=== PATIENT | female | born 1940 | race Caucasian/White ===

== ENCOUNTER 2017-07-22 18:14 | Observation (INO) | payer MEDICARE, OTHER ==
--- NOTE | 2017-07-22 18:22 | PDOC ---
Rapid Medical Evaluation Time Seen by Provider: 07/22/17 18:21 Medical Evaluation: 07/22/17 18:21 I have performed a brief in-person evaluation of this patient. The patient presents with a chief complaint of: erythema/pain to R calf x 2 month, fall while walking, hx of osteopenia and "problem with her leg", R leg pain, vomiting x 2 days, no abd pain, +dyspnea on exertion, Pertinent physical exam findings: swelling/erythema to R calf I have ordered the following: CBC, CMP, D-dimer, IV, EKG The patient will proceed to the ED for further evaluation.
[2017-07-22 18:25] VITALS: BMI 31.8
[2017-07-22 19:11] LABS: BASO % 0.6 % (0-2.0); EOS % 0.3 % (0-4.5); HEMATOCRIT 37.3 % (32.4-45.2); LYMPH % 51.2 % (8-40); MCH 26.4 pg (25.7-33.7); MCHC 32.2 g/dl (32.0-36.0); MEAN CELL VOLUME 82.1 fl (80-96); MEAN PLT VOLUME 8.8 fl (7.5-11.1); MONO % 11.8 % (3.8-10.2); NEUT % 36.1 % (42.8-82.8); PLATELET COUNT 191 K/MM3 (134-434); RBC 4.54 M/mm3 (3.60-5.2); RDW 14.2 % (11.6-15.6); WHITE BLOOD COUNT 2.8 K/mm3 (4.0-10.0)
[2017-07-22 19:48] LABS: ALBUMIN 3.6 g/dl (3.4-5.0); ANION GAP 6 (8-16); BLOOD UREA NITROGEN 19 mg/dL (7-18); CALCIUM 8.2 mg/dL (8.5-10.1); CHLORIDE 104 mmol/L (98-107); CO2 27 mmol/L (21-32); CREATININE 0.5 mg/dL (0.55-1.02); GLUCOSE,RANDOM 87 mg/dL (74-106); POTASSIUM 3.8 mmol/L (3.5-5.1); SGOT/AST 20 U/L (15-37); SGPT/ALT 18 U/L (12-78); SODIUM 137 mmol/L (136-145)
[2017-07-22 19:49] LABS: ALK PHOS 136 U/L (45-117); BILIRUBIN,TOTAL 0.5 mg/dL (0.2-1.0)
--- NOTE | 2017-07-22 20:28 | PDOC ---
History of Present Illness <Darlene Malin - Last Filed: 07/22/17 22:42> - General History Source: Patient Exam Limitations: No Limitations - History of Present Illness Initial Comments: 07/23/17 01:06 Patient is a 76 year old female with a significant past medical history of Osteoporosis who presents to the ED with complaints of right leg pain that began 1 month ago. As per patient's daughter, patient has been experiencing intermittent right leg pain for the last month. Daughter reports patient has been hospitalized for leg pain before. As per patient's daughter, patient does not rate right leg pain on a scale but states it has increased in intensity enough to make her fall twice due to the pain. Patient reports experiencing SOB with exertion. Denies chest pain. Denies nausea, vomiting. Denies fevers, chills. Denies trauma to affected area. Denies any other symptoms. Allergies: None Social history: No smoking. No alcohol. No illicit drugs. Surgical history: None PMD: None <Israel Truong - Last Filed: 07/23/17 01:07> - General Chief Complaint: Nausea/Vomiting Stated Complaint: FALL INJURY Time Seen by Provider: 07/22/17 18:21 Past History - Past Medical History COPD: No Other medical history: OSTEOPENIA - Suicide/Smoking/Psychosocial Hx Smoking History: Never smoked Hx Alcohol Use: No Drug/Substance Use Hx: No Substance Use Type: None <Darlene Malin - Last Filed: 07/22/17 22:42> <Israel Truong - Last Filed: 07/23/17 01:07> - Past Medical History Allergies/Adverse Reactions: Allergies Allergy/AdvReac Type Severity Reaction Status Date / Time No Known Allergies Allergy Verified 07/22/17 18:24 Home Medications: Ambulatory Orders NK [No Known Home Medication] 07/22/17 NK [No Known Home Medication] 07/22/17 Review of Systems - Review of Systems Able to Perform ROS?: Yes Comments:: 07/23/17 01:06 GENERAL/CONSTITUTIONAL: No fever or chills. No weakness. HEAD, EYES, EARS, NOSE AND THROAT: No change in vision. No ear pain or discharge. No sore throat. GASTROINTESTINAL: No nausea, vomiting, diarrhea or constipation. GENITOURINARY: No dysuria, frequency, or change in urination. CARDIOVASCULAR: No chest pain or shortness of breath. RESPIRATORY: No cough, wheezing, or hemoptysis. MUSCULOSKELETAL: +Right leg pain. No joint or muscle swelling. . No neck or back pain. SKIN: No rash NEUROLOGIC: No headache, vertigo, loss of consciousness, or change in strength/ sensation. ENDOCRINE: No increased thirst. No abnormal weight change. HEMATOLOGIC/LYMPHATIC: No anemia, easy bleeding, or history of blood clots. ALLERGIC/IMMUNOLOGIC: No hives or skin allergy. All Other Systems: Reviewed and Negative <Israel Truong - Last Filed: 07/23/17 01:07> *Physical Exam - Vital Signs Last Vital Signs Temp Pulse Resp BP Pulse Ox 98.2 F 61 20 150/60 100 07/22/17 18:17 07/22/17 18:17 07/22/17 18:17 07/22/17 18:17 07/22/17 18:17 <Darlene Malin - Last Filed: 07/22/17 22:42> - Vital Signs Last Vital Signs Temp Pulse Resp BP Pulse Ox 98.2 F 61 20 150/60 100 07/22/17 18:17 07/22/17 18:17 07/22/17 18:17 07/22/17 18:17 07/22/17 18:17 - Physical Exam Comments: 07/23/17 01:06 GENERAL: Awake, alert, and fully oriented, in no acute distress HEAD: No signs of trauma EYES: PERRLA, EOMI, sclera anicteric, conjunctiva clear ENT: Auricles normal inspection, hearing grossly normal, nares patent, oropharynx clear without exudates. Moist mucosa NECK: Normal ROM, supple, no lymphadenopathy, JVD, or masses LUNGS: Breath sounds equal, clear to auscultation bilaterally. No wheezes, and no crackles HEART: Regular rate and rhythm, normal S1 and S2, no murmurs, rubs or gallops ABDOMEN: Soft, nontender, normoactive bowel sounds. No guarding, no rebound. No masses EXTREMITIES: +Indurated at the right anterior tibia. +Mild erythematous. + Tender to touch. No warmth. No fluctuance. No lymphangitic spread. Normal range of motion, no edema. No clubbing or cyanosis. No cords, erythema, or tenderness NEUROLOGICAL: Cranial nerves II through XII grossly intact. Normal speech, normal gait SKIN: Warm, Dry, normal turgor, no rashes or lesions noted. <Israel Truong - Last Filed: 07/23/17 01:07> Heart Score/ECG Review - ECG Intrepretation Comment:: 07/22/17 22:30 sinus kirsten at 58, pacs, nl axis, no acute st/t wave findings <Darlene Malin - Last Filed: 07/22/17 22:42> ED Treatment Course - LABORATORY CBC & Chemistry Diagram: 07/22/17 19:00 07/22/17 19:00 - ADDITIONAL ORDERS Additional order review: Laboratory Results 07/22/17 07/22/17 07/22/17 19:00 19:00 19:00 D-Dimer 354 Sodium 137 Potassium 3.8 Chloride 104 Carbon Dioxide 27 Anion Gap 6 L BUN 19 H Creatinine 0.5 L Creat Clearance w eGFR > 60 Random Glucose 87 Calcium 8.2 L Total Bilirubin 0.5 AST 20 ALT 18 Alkaline Phosphatase 136 H B-Natriuretic Peptide 187.68 H Total Protein 8.0 Albumin 3.6 07/22/17 19:00 RBC 4.54 MCV 82.1 MCHC 32.2 RDW 14.2 MPV 8.8 Neutrophils % 36.1 L Lymphocytes % 51.2 H Monocytes % 11.8 H Eosinophils % 0.3 Basophils % 0.6 <Darlene Malin - Last Filed: 07/22/17 22:42> - LABORATORY CBC & Chemistry Diagram: 07/22/17 19:00 07/22/17 19:00 - ADDITIONAL ORDERS Additional order review: Laboratory Results 07/22/17 07/22/17 07/22/17 19:00 19:00 19:00 D-Dimer 354 Sodium Potassium Chloride Carbon Dioxide Anion Gap BUN Creatinine Creat Clearance w eGFR Random Glucose Calcium Total Bilirubin AST ALT Alkaline Phosphatase Creatine Kinase 101 Troponin I 0.06 H B-Natriuretic Peptide 187.68 H Total Protein Albumin 07/22/17 19:00 D-Dimer Sodium 137 Potassium 3.8 Chloride 104 Carbon Dioxide 27 Anion Gap 6 L BUN 19 H Creatinine 0.5 L Creat Clearance w eGFR > 60 Random Glucose 87 Calcium 8.2 L Total Bilirubin 0.5 AST 20 ALT 18 Alkaline Phosphatase 136 H Creatine Kinase Troponin I B-Natriuretic Peptide Total Protein 8.0 Albumin 3.6 07/22/17 19:00 RBC 4.54 MCV 82.1 MCHC 32.2 RDW 14.2 MPV 8.8 Neutrophils % 36.1 L Lymphocytes % 51.2 H Monocytes % 11.8 H Eosinophils % 0.3 Basophils % 0.6 - Medications Given in the ED: ED Medications Discontinued Medications Generic Name Dose Route Start Last Admin Trade Name Antonio PRN Reason Stop Dose Admin Aspirin 324 mg 07/22/17 22:37 07/22/17 23:32 Asa - PO 07/22/17 22:38 324 mg ONCE ONE Administration Famotidine/Sodium Chloride 20 mg in 50 mls @ 100 mls/hr 07/22/17 22:37 23:32 Pepcid 20 Mg Premixed Ivpb - IVPB 07/22/17 23:06 100 mls/hr ONCE ONE Administration Ondansetron HCl 4 mg 07/22/17 22:37 07/22/17 23:32 Zofran Injection IVPUSH 07/22/17 22:38 4 mg ONCE ONE Administration <Israel Truong - Last Filed: 07/23/17 01:07> Medical Decision Making - Medical Decision Making 07/22/17 22:31 a/p: 76yo female with sob/leg pain -labs, ekg, cxr, dimer, dopplers -concern given fall -denies head injury -concern given levine for atypical presentation of acs 07/22/17 22:34 pt with elevated trop on labs levine will keep for repeat trops dimer negative 07/22/17 22:[address] Valencia who accept pt to obs <Darlene Malin - Last Filed: 07/22/17 22:42> *DC/Admit/Observation/Transfer - Discharge Dispostion Admit: Yes - Attestations Physician Attestion: 07/22/17 22:37 I, Dr. Darlene Malin DO, attest that this document has been prepared under my direction and personally reviewed by me in its entirety. I further attest, that it accurately reflects all work, treatment, procedures and medical decision -making performed by me. <Darlene Malin - Last Filed: 07/22/17 22:42> - Attestations Scribe Attestion: 07/23/17 01:06 Documentation prepared by Israel Truong, acting as outside medical sales representative for Darlene Malin DO, MD/. <Israel Truong - Last Filed: 07/23/17 01:07> Diagnosis at time of Disposition: Dyspnea on exertion, Elevated troponin - Discharge Dispostion Condition at time of disposition: Fair
[2017-07-22] MEDS ORDERED: FAMOTIDINE 20 MG/50 ML IVPB 20 MG/50 ML MG IVPB ONE ×2 (22:37→23:19)
[2017-07-22] MEDS ORDERED: ASPIRIN 81 MG CHEWABLE TABLETS PO ONE (22:37)
[2017-07-22] MEDS ORDERED: ONDANSETRON 4 MG/2 ML VIAL IVPUSH ONE (22:37)
--- NOTE | 2017-07-22 22:40 | HP ---
CHIEF COMPLAINT: SOB, Nausea, right leg pain PCP:does not have one HISTORY OF PRESENT ILLNESS: 76 year old female with no PMH who presented to the ED with one day H/ O SOB , dry cough, nausea and right leg pain was found to have elevated trop and was admitted to obs to R/O ACS and PE . Patient denies any headache, dizziness, bluury vision. Denies chest pain, palpitation, dyspnea , orthopnea. denies any abdominal pain, vomiting, D/C. denies leg swelling, or any urinary symptoms. ER course was notable for: (1) CXR Negative (2)CTA negaitve (3)Douplex LE negative (4)Zofran for nausea Recent Travel:none PAST MEDICAL HISTORY:none PAST SURGICAL HISTORY: Hysterectomy Social History: Smoking:denies Alcohol:denies Drugs: denies Family History: Allergies No Known Allergies Allergy (Verified 07/22/17 18:24) HOME MEDICATIONS: REVIEW OF SYSTEMS CONSTITUTIONAL: Absent: fever, chills, diaphoresis, generalized weakness, malaise, loss of appetite, weight change, hot flashes HEENT: Absent: rhinorrhea, nasal congestion, throat pain, throat swelling, difficulty swallowing, mouth swelling, ear pain, eye pain, visual changes CARDIOVASCULAR: Absent: chest pain, syncope, palpitations, irregular heart rate, lightheadedness , peripheral edema RESPIRATORY: Absent: cough, shortness of breath, dyspnea with exertion, orthopnea, wheezing, stridor, hemoptysis GASTROINTESTINAL: Absent: abdominal pain, abdominal distension, nausea, vomiting, diarrhea, constipation, melena, hematochezia GENITOURINARY: Absent: dysuria, frequency, urgency, hesitancy, hematuria, flank pain, genital pain MUSCULOSKELETAL: Absent: myalgia, arthralgia, joint swelling, back pain, neck pain SKIN: Absent: rash, itching, pallor HEMATOLOGIC/IMMUNOLOGIC: Absent: easy bleeding, easy bruising, lymphadenopathy, frequent infections ENDOCRINE: Absent: unexplained weight gain, unexplained weight loss, heat intolerance, cold intolerance NEUROLOGIC: Absent: headache, focal weakness or paresthesias, dizziness, unsteady gait, seizure, mental status changes, bladder or bowel incontinence PSYCHIATRIC: Absent: anxiety, depression, suicidal or homicidal ideation, hallucinations. PHYSICAL EXAMINATION Vital Signs - 24 hr 07/22/17 18:17 Temperature 98.2 F Pulse Rate 61 Respiratory 20 Rate Blood Pressure 150/60 O2 Sat by Pulse 100 Oximetry (%) GENERAL: Awake, alert, and fully oriented, in no acute distress. HEAD: Normal with no signs of trauma. EYES: Pupils equal, round and reactive to light, extraocular movements intact, sclera anicteric, conjunctiva clear EARS, NOSE, THROAT: Moist mucous membranes. NECK: Normal range of motion, supple without lymphadenopathy, LUNGS: Breath sounds equal, clear to auscultation bilaterally. No wheezes, and no crackles. No accessory muscle use. HEART: sinus bradycardia , normal S1 and S2 without murmur, rub or gallop. ABDOMEN: Soft, nontender, not distended, normoactive bowel sounds, no guarding, no rebound, LOWER EXTREMITIES: 2+ pulses, warm, well-perfused. No calf tenderness. No peripheral edema. right leg cellulites NEUROLOGICAL: No focal deficit . Normal speech. PSYCHIATRIC: Cooperative. Good eye contact. Appropriate mood and affect. SKIN: Warm, dry, no rashes or lesions noted, Laboratory Results - last 24 hr 07/22/17 07/22/17 07/22/17 19:00 19:00 19:00 WBC 2.8 L RBC 4.54 Hgb 12.0 Hct 37.3 MCV 82.1 MCH 26.4 MCHC 32.2 RDW 14.2 Plt Count 191 MPV 8.8 Neutrophils % 36.1 L Lymphocytes % 51.2 H Monocytes % 11.8 H Eosinophils % 0.3 Basophils % 0.6 D-Dimer Sodium 137 Potassium 3.8 Chloride 104 Carbon Dioxide 27 Anion Gap 6 L BUN 19 H Creatinine 0.5 L Creat Clearance w eGFR > 60 Random Glucose 87 Calcium 8.2 L Total Bilirubin 0.5 AST 20 ALT 18 Alkaline Phosphatase 136 H Creatine Kinase Troponin I B-Natriuretic Peptide 187.68 H Total Protein 8.0 Albumin 3.6 07/22/17 07/22/17 19:00 19:00 WBC RBC Hgb Hct MCV MCH MCHC RDW Plt Count MPV Neutrophils % Lymphocytes % Monocytes % Eosinophils % Basophils % D-Dimer 354 Sodium Potassium Chloride Carbon Dioxide Anion Gap BUN Creatinine Creat Clearance w eGFR Random Glucose Calcium Total Bilirubin AST ALT Alkaline Phosphatase Creatine Kinase 101 Troponin I 0.06 H B-Natriuretic Peptide Total Protein Albumin CBC, BMP 07/22/17 19:00 07/22/17 19:00 CXR: No acute process CTA negative for PE EKG: Sinus Luis Enrique , , non specific St,T wave changes ,QT 434. ASSESSMENT/PLAN: 76 year old female with no PMH who presented to [facility] ED with one day H/ O SOB , dry cough, nausea and right leg pain was found to have elevated trop and was admitted to obs to R/O ACS . # Shortness of breath with Elevated trop R/O PE * R/O ACS * Trend Trop * EKG : non specifc T , St changes ,repeat EKG in AM * Echo cardiogram in AM * Cardiology consult * ASA, Nitroglycerin if developed chest pain * CXR negative for acute process * CTA negative * D-dimer negative * Duplex LE negative for DVT * # right leg cellulite * cefazolin 1gm IV Q8hr. # FEN * F: encourage oral intake * E: WNL * N: regular diet # Proph * DVTs: SCDS both legs with early ambulation # Admit * to obs * Full code Visit type - Emergency Visit Emergency Visit: Yes ED Registration Date: 07/22/17 Care time: The patient presented to the Emergency Department on the above date and was hospitalized for further evaluation of their emergent condition. - New Patient This patient is new to me today: Yes Date on this admission: 07/22/17 - Critical Care Critical Care patient: No
--- NOTE | 2017-07-22 23:10 | PN ---
Teaching Attending Note Name of Resident: Gilson Lerma ATTENDING PHYSICIAN STATEMENT I saw and evaluated the patient. I reviewed the resident's note and discussed the case with the resident. I agree with the resident's findings and plan as documented. SUBJECTIVE: 76 f w pmhx. of osteopenia who presents with right calf pain and erythema X 2 months. Pt. State she currently has no pain and that she feels well. Denies any shortness of breath, chest pain or pressure. No fevers or chills. No n/v/d OBJECTIVE: Physical: VS: Vital Signs Period Temp Pulse Resp BP Sys/Redd Pulse Ox Last 24 Hr 98.2 F 61 20 150/60 100 GEN: NAD, resting in bed, AA0X3 HEENT: NCAT, PERRL, throat without erythema or exudates CARD: RRR S1, S2 RESP: CTAB ABD: BSX4, NTD to palpation EXT: R, lower calf with 2x5cm area of warmth and pain on palpation, LLE - C/C/E CBCD WBC 2.8 K/mm3 (4.0-10.0) L 07/22/17 19:00 RBC 4.54 M/mm3 (3.60-5.2) 07/22/17 19:00 Hgb 12.0 GM/dL (10.7-15.3) 07/22/17 19:00 Hct 37.3 % (32.4-45.2) 07/22/17 19:00 MCV 82.1 fl (80-96) 07/22/17 19:00 MCHC 32.2 g/dl (32.0-36.0) 07/22/17 19:00 RDW 14.2 % (11.6-15.6) 07/22/17 19:00 Plt Count 191 K/MM3 (134-434) 07/22/17 19:00 MPV 8.8 fl (7.5-11.1) 07/22/17 19:00 CMP Sodium 137 mmol/L (136-145) 07/22/17 19:00 Potassium 3.8 mmol/L (3.5-5.1) 07/22/17 19:00 Chloride 104 mmol/L (98-107) 07/22/17 19:00 Carbon Dioxide 27 mmol/L (21-32) 07/22/17 19:00 Anion Gap 6 (8-16) L 07/22/17 19:00 BUN 19 mg/dL (7-18) H 07/22/17 19:00 Creatinine 0.5 mg/dL (0.55-1.02) L 07/22/17 19:00 Creat Clearance w eGFR > 60 (>60) 07/22/17 19:00 Random Glucose 87 mg/dL (74-106) 07/22/17 19:00 Calcium 8.2 mg/dL (8.5-10.1) L 07/22/17 19:00 Total Bilirubin 0.5 mg/dL (0.2-1.0) 07/22/17 19:00 AST 20 U/L (15-37) 07/22/17 19:00 ALT 18 U/L (12-78) 07/22/17 19:00 Alkaline Phosphatase 136 U/L (45-117) H 07/22/17 19:00 Total Protein 8.0 g/dl (6.4-8.2) 07/22/17 19:00 Albumin 3.6 g/dl (3.4-5.0) 07/22/17 19:00 CARDIAC ENZYMES Creatine Kinase 101 IU/L (26-192) 07/22/17 19:00 Troponin I 0.06 ng/ml (0.00-0.05) H 07/22/17 19:00 EKG: S Wang CXR- No Acute Process Duplex- Neg. DVT in either ext. ASSESSMENT AND PLAN: SUBJECTIVE: 76 f w pmhx. of osteopenia who presents with right calf pain and erythema X 2 months., with shortness of breath 1.) Shortness or Breath - RO Acs DDx: P htn - Trend Trop/Ekg - Echo - Dimer Neg, Duplex neg- Less likely PE 2.) Cellulitis of RLE - Cefazolin 3.) Dvt Ppx - SCDS Place in Obs
[2017-07-22] MEDS ORDERED: ASPIRIN 81 MG CHEWABLE TABLETS ONE (23:19)
[2017-07-22] MEDS ORDERED: ONDANSETRON 4 MG/2 ML VIAL ONE (23:19)
[2017-07-23] MEDS ORDERED: CEFAZOLIN 1 GM/D5W 1 GM/50 ML BAG ONE (00:02)
[2017-07-23] MEDS: CEFAZOLIN 1 GM/D5W 1 GM/50 ML BAG IVPB SCH ×2 (00:35→11:00)
[2017-07-23 06:58] LABS: BASO % 0.7 % (0-2.0); EOS % 0.5 % (0-4.5); LYMPH % 54.7 % (8-40); MCH 26.6 pg (25.7-33.7); MCHC 32.2 g/dl (32.0-36.0); MEAN CELL VOLUME 82.7 fl (80-96); MONO % 12.9 % (3.8-10.2); NEUT % 31.2 % (42.8-82.8); PLATELET COUNT 189 K/MM3 (134-434); RBC 4.12 M/mm3 (3.60-5.2); RDW 14.5 % (11.6-15.6)
[2017-07-23 07:52] LABS: ALBUMIN 3.1 g/dl (3.4-5.0); ANION GAP 7 (8-16); BLOOD UREA NITROGEN 13 mg/dL (7-18); CALCIUM 7.5 mg/dL (8.5-10.1); CHLORIDE 106 mmol/L (98-107); CO2 26 mmol/L (21-32); GLUCOSE,RANDOM 83 mg/dL (74-106); POTASSIUM 3.7 mmol/L (3.5-5.1); SODIUM 139 mmol/L (136-145)
[2017-07-23 07:55] LABS: ALK PHOS 112 U/L (45-117); BILIRUBIN,TOTAL 0.6 mg/dL (0.2-1.0); CREATININE 0.5 mg/dL (0.55-1.02); SGOT/AST 17 U/L (15-37); SGPT/ALT 14 U/L (12-78); TOT PROT 6.8 g/dl (6.4-8.2)
--- NOTE | 2017-07-23 09:11 | EKG ---
Test Reason : Blood Pressure : / mmHG Vent. Rate : 058 BPM Atrial Rate : 058 BPM P-R Int : 146 ms QRS Dur : 072 ms QT Int : 434 ms P-R-T Axes : 052 018 039 degrees QTc Int : 426 ms SINUS BRADYCARDIA WITH PREMATURE SUPRAVENTRICULAR COMPLEXES OTHERWISE NORMAL ECG NO PREVIOUS ECGS AVAILABLE Confirmed by SAUD CANTU MD ([id number]) on 07/23/2017 9:11:23 AM Referred By: Confirmed By:SAUD CANTU MD
--- NOTE | 2017-07-23 12:43 | EKG ---
Test Reason : Blood Pressure : / mmHG Vent. Rate : 056 BPM Atrial Rate : 056 BPM P-R Int : 176 ms QRS Dur : 072 ms QT Int : 450 ms P-R-T Axes : 041 043 048 degrees QTc Int : 434 ms SINUS BRADYCARDIA WITH PREMATURE ATRIAL COMPLEXES IN A PATTERN OF BIGEMINY OTHERWISE NORMAL ECG WHEN COMPARED WITH ECG OF 22-JUL-2017 20:43, NO SIGNIFICANT CHANGE WAS FOUND Confirmed by YOUNG ARRIOLA, CRISTINA ([id number]) on 07/23/2017 12:43:12 PM Referred By: Confirmed By:CRISTINA VIDAL MD
--- NOTE | 2017-07-23 14:37 | PN ---
Physical Exam: SUBJECTIVE: Patient seen and examined with her family at the bedside. She is primarily lithuanian speaking. OBJECTIVE: Patient denies any further chest pain, denies shortness of breath Tolerating room air RLE inner soft tissue abscess, ID consulted Vital Signs Period Temp Pulse Resp BP Sys/Redd Pulse Ox Last 24 Hr 98 F-98.5 F 52-98 16-20 117-150/58-70 98-100 GENERAL: The patient is awake, alert, and fully oriented, in no acute distress. HEAD: Normal with no signs of trauma. EYES: PERRL, extraocular movements intact, sclera anicteric, conjunctiva clear. No ptosis. ENT: Ears normal, nares patent, oropharynx clear without exudates, moist mucous membranes. NECK: Trachea midline, full range of motion, supple. LUNGS: Breath sounds equal, diminished breath sounds at the bases, no cough, no further dyspnea HEART: Regular rate and rhythm, S1, S2 without murmur, rub or gallop. ABDOMEN: Soft, nontender, nondistended, normoactive bowel sounds, no guarding, no rebound, no hepatosplenomegaly, no masses. EXTREMITIES: 2+ pulses, warm, well-perfused, no edema. NEUROLOGICAL: Cranial nerves II through XII grossly intact. Normal speech, gait not observed. PSYCH: Normal mood, normal affect. SKIN: Right inner lower leg abscess, no drainage Laboratory Results - last 24 hr 07/22/17 07/22/17 07/22/17 19:00 19:00 19:00 WBC 2.8 L RBC 4.54 Hgb 12.0 Hct 37.3 MCV 82.1 MCH 26.4 MCHC 32.2 RDW 14.2 Plt Count 191 MPV 8.8 Neutrophils % 36.1 L Lymphocytes % 51.2 H Monocytes % 11.8 H Eosinophils % 0.3 Basophils % 0.6 D-Dimer Sodium 137 Potassium 3.8 Chloride 104 Carbon Dioxide 27 Anion Gap 6 L BUN 19 H Creatinine 0.5 L Creat Clearance w eGFR > 60 Random Glucose 87 Hemoglobin A1c % Calcium 8.2 L Total Bilirubin 0.5 AST 20 ALT 18 Alkaline Phosphatase 136 H Creatine Kinase Troponin I B-Natriuretic Peptide 187.68 H Total Protein 8.0 Albumin 3.6 Triglycerides Cholesterol Total LDL Cholesterol HDL Cholesterol TSH 07/22/17 07/22/17 07/23/17 19:00 19:00 06:13 WBC RBC Hgb Hct MCV MCH MCHC RDW Plt Count MPV Neutrophils % Lymphocytes % Monocytes % Eosinophils % Basophils % D-Dimer 354 Sodium Potassium Chloride Carbon Dioxide Anion Gap BUN Creatinine Creat Clearance w eGFR Random Glucose Hemoglobin A1c % Calcium Total Bilirubin AST ALT Alkaline Phosphatase Creatine Kinase 101 Troponin I 0.06 H 0.07 H B-Natriuretic Peptide Total Protein Albumin Triglycerides Cholesterol Total LDL Cholesterol HDL Cholesterol TSH 07/23/17 07/23/17 07/23/17 06:13 06:13 09:41 WBC 2.0 L RBC 4.12 Hgb 11.0 Hct 34.0 MCV 82.7 MCH 26.6 MCHC 32.2 RDW 14.5 Plt Count 189 MPV 9.0 Neutrophils % 31.2 L Lymphocytes % 54.7 H Monocytes % 12.9 H Eosinophils % 0.5 Basophils % 0.7 D-Dimer Sodium 139 Potassium 3.7 Chloride 106 Carbon Dioxide 26 Anion Gap 7 L BUN 13 D Creatinine 0.5 L Creat Clearance w eGFR > 60 Random Glucose 83 Hemoglobin A1c % Calcium 7.5 L Total Bilirubin 0.6 AST 17 ALT 14 D Alkaline Phosphatase 112 Creatine Kinase Troponin I B-Natriuretic Peptide Total Protein 6.8 Albumin 3.1 L Triglycerides 53 Cholesterol 105 Total LDL Cholesterol 55 HDL Cholesterol 46 TSH 2.33 07/23/17 07/23/17 09:41 13:25 WBC RBC Hgb Hct MCV MCH MCHC RDW Plt Count MPV Neutrophils % Lymphocytes % Monocytes % Eosinophils % Basophils % D-Dimer Sodium Potassium Chloride Carbon Dioxide Anion Gap BUN Creatinine Creat Clearance w eGFR Random Glucose Hemoglobin A1c % 6.1 H Calcium Total Bilirubin AST ALT Alkaline Phosphatase Creatine Kinase Troponin I 0.06 H B-Natriuretic Peptide Total Protein Albumin Triglycerides Cholesterol Total LDL Cholesterol HDL Cholesterol TSH Active Medications Generic Name Dose Route Start Last Admin Trade Name Freq PRN Reason Stop Dose Admin Cefazolin Sodium 1 gm in 50 mls @ 100 mls/hr 07/22/17 23:45 07/23/17 11:00 Ancef 1 Gm Premixed Ivpb - IVPB 100 mls/hr Q8H-IV MADDIE Administration ASSESSMENT/PLAN: Patient is a 76 year old female with a past medical history of falls. She presents to the ED on 07/22/2017 with complaints of dyspnea on exertion and right leg pain, tenderness and erythema for the past 2 months. As per patient, she fell and tripped about 2 months ago when she was ambulating, sustaining a scratch on her right leg. As per pt, she developed chills and nausea in the past few days prompting her to come to the ED. On admission, it was noted that patient had leukopenia (2.8, 2) with flat trending troponins. EKG: SB, pvcs bigemmy Echo: LV normal, RV normal, mild TR, trace MR, EF 76% Cardiology Chest pain, resolved Rule out ACS Denies chest pain on exam Trops flat trending Echo: LV normal, RV normal, mild TR, trace MR, EF 76% Pulmonary Shortness of breath, resolved Denies any shortness of breath on exam Lungs clear to auscultation Vascular study normal, no DVT Echo within normal limits Respiratory Pre and post within normal limits, no tachycardia D Dimer negative Ambulating up and down pod without dyspnea No symptoms of shortness of breath Hematology Leukopenia, unclear etiology No fevers, no labs to compare Patient encouraged to follow up outpatient for further workup Hematology referral as an outpatient Skin: RLE abscess, chronic Given Cefazolin in ED, started on Keflex TID by ID Ambulating well, no difficulty Continue PT F.E.N. Fluids: tolerating PO Electrolytes: monitor Nutrition: low sodium diet Prophylaxis: DVT: LOS <48 hours Gi: deferred Visit type - Emergency Visit Emergency Visit: Yes ED Registration Date: 07/22/17 Care time: The patient presented to the Emergency Department on the above date and was hospitalized for further evaluation of their emergent condition. - New Patient This patient is new to me today: Yes Date on this admission: 07/24/17 - Critical Care Critical Care patient: No - Discharge Referral [facility]erred to [facility] Yes Physician Referral: Richmond Villalpando MD ([facility])
--- NOTE | 2017-07-23 14:56 | CON.CARD ---
Consult Consult Specialty:: Cardiology Referred by:: Erik Reason for Consultation:: elevated troponin - History of Present Illness Chief Complaint: leg pain History of Present Illness: She is a 76 year old female with a significant past medical history of Osteoporosis who presents to the ED with complaints of right leg pain that began 1 month ago. Found with cellulitis and elevated troponin. No chest pain, sob, orthopnea, pnd or edema. Exercise tolerance is poor due to leg pain and deconditioning. Echo 07/23/17 normal EF, trace mr mild tr - History Source History Provided By: Patient, Medical Record Limitations to Obtaining History: No Limitations - Alcohol/Substance Use Hx Alcohol Use: No - Smoking History Smoking history: Never smoked Home Medications - Allergies Allergies/Adverse Reactions: Allergies Allergy/AdvReac Type Severity Reaction Status Date / Time No Known Allergies Allergy Verified 07/22/17 18:24 - Home Medications Home Medications: Ambulatory Orders NK [No Known Home Medication] 07/22/17 NK [No Known Home Medication] 07/22/17 Vital Signs: Vital Signs Temperature 98.1 F 07/23/17 09:19 Pulse Rate 60 07/23/17 14:12 Respiratory Rate 18 07/23/17 14:12 Blood Pressure 126/70 07/23/17 14:12 O2 Sat by Pulse Oximetry (%) 98 07/23/17 14:12 Constitutional: Yes: No Distress Eyes: Yes: EOM Intact HENT: Yes: Normocephalic Neck: Yes: Trachea Midline Respiratory: Yes: CTA Bilaterally Gastrointestinal: Yes: Normal Bowel Sounds Cardiovascular: Yes: Regular Rate and Rhythm JVD: No Carotid Bruit: No PMI: Non-Displaced Heart Sounds: Yes: S1, S2 Extremities: Yes: Erythema Edema: No Peripheral Pulses WNL: Yes - Other Data Labs, Other Data: CBC, BMP 07/23/17 06:13 07/23/17 06:13 Troponin, BNP 07/22/17 07/22/17 07/23/17 19:00 19:00 06:13 Troponin I 0.06 H 0.07 H B-Natriuretic Peptide 187.68 H 07/23/17 13:25 Troponin I 0.06 H B-Natriuretic Peptide Troponin, BNP 07/22/17 07/22/17 07/23/17 19:00 19:00 06:13 Troponin I 0.06 H 0.07 H B-Natriuretic Peptide 187.68 H 07/23/17 13:25 Troponin I 0.06 H B-Natriuretic Peptide Imaging - Results EKG: Report Reviewed (nsr apcs no st or t wave changes.) Problem List - Problems (1) Elevated troponin Assessment/Plan: This is a nonischemic pattern in a patient without ECG changes, wall motion abnormalities or chest pain. Echo is normal. Treat for cellulitis. Consider PE workup. would not pursue ischemia workup at this point. observe on tele x 24 hours. Code(s): R74.8 - ABNORMAL LEVELS OF OTHER SERUM ENZYMES
--- NOTE | 2017-07-23 16:17 | CONSULT ---
Consultation: REQUESTING PROVIDER: CONSULT REQUEST: We have been asked to medically evaluate this patient for R leg abscess. HISTORY OF PRESENT ILLNESS: 76 y/o F with PMH fall 8 yrs ago (in [place], where she was hospitalized for multiple days and needed to use a cane), who presented to the ED with R calf pain tenderness and erythema for the past two months. Pt is a [place] speaker.As per pt, two months ago, she was walking in her home and tripped, scratching her leg. She did not have LOC, or experience palpitations during this time. Over the past three days, pt also developed chills, nausea (without emesis), as well as loose BMs (without blood), which brought her to the ED. While in the ED, pt was afebrile, with leukopenia (2.8, 2), elevated troponins x 3. Pt was started on cefazolin 1gm every 8h. 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 Has not been able to work d/t her leg pain ID team consulted for R leg abscess. REVIEW OF SYSTEMS: CONSTITUTIONAL: +chills Absent: fever, chills, diaphoresis, generalized weakness, malaise, loss of appetite, weight change HEENT: Absent: rhinorrhea, nasal congestion, throat pain, throat swelling, difficulty swallowing, mouth swelling, ear pain, eye pain, visual changes CARDIOVASCULAR: Absent: chest pain, syncope, palpitations, irregular heart rate, lightheadedness , peripheral edema RESPIRATORY: Absent: cough, shortness of breath, dyspnea with exertion, orthopnea, wheezing, stridor, hemoptysis GASTROINTESTINAL: +nausea, diarrhea Absent: abdominal pain, abdominal distension, nausea, vomiting, diarrhea, constipation, melena, hematochezia GENITOURINARY: Absent: dysuria, frequency, urgency, hesitancy, hematuria, flank pain, genital pain MUSCULOSKELETAL: Absent: myalgia, arthralgia, joint swelling, back pain, neck pain SKIN: Absent: rash, itching, pallor HEMATOLOGIC/IMMUNOLOGIC: Absent: easy bleeding, easy bruising, lymphadenopathy, frequent infections ENDOCRINE: Absent: unexplained weight gain, unexplained weight loss, heat intolerance, cold intolerance NEUROLOGIC: Absent: headache, focal weakness or paresthesias, dizziness, unsteady gait, seizure, mental status changes, bladder or bowel incontinence PSYCHIATRIC: Absent: anxiety, depression, suicidal or homicidal ideation, hallucinations. PHYSICAL EXAMINATION Vital Signs - 24 hr 07/23/17 07/23/17 07/23/17 00:00 05:46 09:19 Temperature 98.5 F 98 F 98.1 F Pulse Rate [ Left Radial] Respiratory Rate Blood Pressure [Right Arm] 07/23/17 14:12 Temperature Pulse Rate [ 60 Left Radial] Respiratory 18 Rate Blood Pressure 126/70 [Right Arm] GENERAL: Pt is sitting up in bed. Awake, alert, and fully oriented, in no acute distress. HEAD: Normal with no signs of trauma. EYES: Pupils equal, round and reactive to light, extraocular movements intact, sclera anicteric, conjunctiva clear. NECK: Normal range of motion, supple LUNGS: Breath sounds equal, clear to auscultation bilaterally. No wheezes, and no crackles. No accessory muscle use. HEART: Regular rate and rhythm, normal S1 and S2 without murmur, rub or gallop. ABDOMEN: Soft, nontender, not distended, normoactive bowel sounds, no guarding, no rebound, no masses. LOWER EXTREMITIES: 2+ dorsalis pedis pulses, warm, well-perfused. R medial - localized soft tissue infection measuring 3 cm x3cm. With erythema, warmth, induration. No fluctuance. NEUROLOGICAL: Cranial nerves II-XII intact. PSYCHIATRIC: Cooperative. Laboratory Tests 07/22/17 07/22/17 07/23/17 19:00 19:00 06:13 WBC Hgb Hct Plt Count D-Dimer 354 Sodium Potassium Chloride Carbon Dioxide BUN Creatinine Hemoglobin A1c % Troponin I 0.06 H 0.07 H 07/23/17 07/23/17 07/23/17 06:13 06:13 09:41 WBC 2.0 L Hgb 11.0 Hct 34.0 Plt Count 189 D-Dimer Sodium 139 Potassium 3.7 Chloride 106 Carbon Dioxide 26 BUN 13 D Creatinine 0.5 L Hemoglobin A1c % 6.1 H Troponin I 07/23/17 13:25 WBC Hgb Hct Plt Count D-Dimer Sodium Potassium Chloride Carbon Dioxide BUN Creatinine Hemoglobin A1c % Troponin I 0.06 H Microbiology 07/23/17 03:20 Nasopharyngeal Swab Influenza Types A,B Antigen (ROBERT) - Final 07/23/17 03:20 Nasopharyngeal Swab - Final Active Medications Generic Name Dose Route Start Last Admin Trade Name Freq PRN Reason Stop Dose Admin Cefazolin Sodium 1 gm in 50 mls @ 100 mls/hr 07/22/17 23:45 07/23/17 11:00 Ancef 1 Gm Premixed Ivpb - IVPB 100 mls/hr Q8H-IV MADDIE Administration ASSESSMENT/PLAN: #RLE soft tissue infection -Pt afebrile, with leukopenia -Received cefazolin in ED, has been d/c -Pt started on keflex 500mg PO TID -F/u ESR, CRP to r/o vasculitis -if does not improve, may need skin biopsy. Thank you Liliana Orozco MD PGY-1 ID Team Dispo: We will continue to follow the patient. Thank you for this consultative opportunity. Visit type - Emergency Visit Emergency Visit: No - New Patient This patient is new to me today: Yes Date on this admission: 07/23/17 - Critical Care Critical Care patient: No
--- NOTE | 2017-07-23 16:43 | PN ---
Teaching Attending Note Name of Resident: Liliana Orozco ATTENDING PHYSICIAN STATEMENT I saw and evaluated the patient. I reviewed the resident's note and discussed the case with the resident. I agree with the resident's findings and plan as documented. SUBJECTIVE: OBJECTIVE: ASSESSMENT AND PLAN: Cellulitis R LE Leukopenia Obtain ESR, CRP HIV test Keflex 500mg po tid If no improvement, derm consult/ punch skin bx
[2017-07-23] MEDS: CEPHALEXIN MONOHYDRATE 500 MG CAPSULE (UD) PO SCH (21:09)
[2017-07-24 05:22] VITALS: TEMP 98.3
[2017-07-24] MEDS: CEPHALEXIN MONOHYDRATE 500 MG CAPSULE (UD) PO SCH (05:25)
[2017-07-24 08:48] LABS: BASO % 0.8 % (0-2.0); EOS % 0.7 % (0-4.5); HEMATOCRIT 36.9 % (32.4-45.2); HEMOGLOBIN 11.8 GM/dL (10.7-15.3); LYMPH % 43.2 % (8-40); MCH 26.3 pg (25.7-33.7); MEAN CELL VOLUME 82.2 fl (80-96); MEAN PLT VOLUME 8.5 fl (7.5-11.1); MONO % 9.9 % (3.8-10.2); NEUT % 45.4 % (42.8-82.8); PLATELET COUNT 193 K/MM3 (134-434); RBC 4.49 M/mm3 (3.60-5.2); RDW 14.5 % (11.6-15.6); WHITE BLOOD COUNT 2.9 K/mm3 (4.0-10.0)
[2017-07-24 09:24] LABS: ALBUMIN 3.2 g/dl (3.4-5.0); ANION GAP 7 (8-16); BLOOD UREA NITROGEN 11 mg/dL (7-18); CALCIUM 8.1 mg/dL (8.5-10.1); CHLORIDE 106 mmol/L (98-107); CO2 25 mmol/L (21-32); GLUCOSE,RANDOM 97 mg/dL (74-106); POTASSIUM 4.2 mmol/L (3.5-5.1); SODIUM 138 mmol/L (136-145)
[2017-07-24 09:28] LABS: ALK PHOS 118 U/L (45-117); BILIRUBIN,TOTAL 0.8 mg/dL (0.2-1.0); CREATININE 0.5 mg/dL (0.55-1.02); SGOT/AST 17 U/L (15-37); SGPT/ALT 15 U/L (12-78); TOT PROT 7.2 g/dl (6.4-8.2)
--- NOTE | 2017-07-24 09:56 | DS ---
Physical Exam: SUBJECTIVE: Patient seen and examined. States she feels better today. No chest pain, no shortness of breath. Patient states her right leg pain has improved. Agrees to follow up at [facility] for follow up care, given Dr. Low contact information as a second option. OBJECTIVE: Observed patient ambulating with her spouse yesterday evening, tolerating room air, no distress, no shortness of breath. Gait steady Oxygen pre and post stable Patient instructed to follow up with Dr. Paz, dermatology if right leg abscess does not improve with the Keflex, she may need biopsy. Hematology follow up recommended for leukopenia. Vital Signs Period Temp Pulse Resp BP Sys/Redd Pulse Ox Last 24 Hr 97.6 F-98.6 F 52-72 18-18 107-128/55-77 98-98 PHYSICAL EXAM GENERAL: The patient is awake, alert, and fully oriented, in no acute distress. GIG HEAD: Normal with no signs of trauma. EYES: PERRL, extraocular movements intact, sclera anicteric, conjunctiva clear. No ptosis. ENT: Ears normal, nares patent, oropharynx clear without exudates, moist mucous membranes. NECK: Trachea midline, full range of motion, supple. LUNGS: Breath sounds equal, diminished breath sounds at the bases, no cough, no further dyspnea HEART: Regular rate and rhythm, S1, S2 without murmur, rub or gallop. ABDOMEN: Soft, nontender, nondistended, normoactive bowel sounds, no guarding, no rebound, no hepatosplenomegaly, no masses. EXTREMITIES: no edema, small right inner lower leg abscess that measures apx 3cm x 3cm, no drainage NEUROLOGICAL: Cranial nerves II through XII grossly intact. Normal speech, gait steady PSYCH: Normal mood, normal affect. SKIN: Right inner lower leg abscess, no drainage 3cm x 3cm apx measurements, on Keflex LABS Laboratory Results - last 24 hr 07/23/17 07/23/17 07/23/17 09:41 09:41 13:25 WBC RBC Hgb Hct MCV MCH MCHC RDW Plt Count MPV Neutrophils % Lymphocytes % Monocytes % Eosinophils % Basophils % ESR Sodium Potassium Chloride Carbon Dioxide Anion Gap BUN Creatinine Creat Clearance w eGFR Random Glucose Hemoglobin A1c % 6.1 H Calcium Total Bilirubin AST ALT Alkaline Phosphatase Troponin I 0.06 H C-Reactive Protein Total Protein Albumin Triglycerides 53 Cholesterol 105 Total LDL Cholesterol 55 HDL Cholesterol 46 TSH 2.33 07/23/17 07/23/17 07/24/17 17:55 17:55 08:39 WBC 2.9 L D RBC 4.49 Hgb 11.8 Hct 36.9 MCV 82.2 MCH 26.3 MCHC 32.0 RDW 14.5 Plt Count 193 MPV 8.5 Neutrophils % 45.4 D Lymphocytes % 43.2 H D Monocytes % 9.9 Eosinophils % 0.7 Basophils % 0.8 ESR 43 H Sodium Potassium Chloride Carbon Dioxide Anion Gap BUN Creatinine Creat Clearance w eGFR Random Glucose Hemoglobin A1c % Calcium Total Bilirubin AST ALT Alkaline Phosphatase Troponin I C-Reactive Protein 0.3 Total Protein Albumin Triglycerides Cholesterol Total LDL Cholesterol HDL Cholesterol TSH 07/24/17 08:39 WBC RBC Hgb Hct MCV MCH MCHC RDW Plt Count MPV Neutrophils % Lymphocytes % Monocytes % Eosinophils % Basophils % ESR Sodium 138 Potassium 4.2 Chloride 106 Carbon Dioxide 25 Anion Gap 7 L BUN 11 Creatinine 0.5 L Creat Clearance w eGFR > 60 Random Glucose 97 Hemoglobin A1c % Calcium 8.1 L Total Bilirubin 0.8 D AST 17 ALT 15 Alkaline Phosphatase 118 H Troponin I C-Reactive Protein Total Protein 7.2 Albumin 3.2 L Triglycerides Cholesterol Total LDL Cholesterol HDL Cholesterol TSH HOSPITAL COURSE: Date of Admission:07/22/17 Date of Discharge: 07/24/17 ASSESSMENT/PLAN: Patient is a 76 year old female with a past medical history of falls and hysterectomy. She presents to the ED on 07/22/2017 with complaints of dyspnea on exertion and right leg pain, tenderness and erythema for the past 2 months. As per patient, she fell and tripped about 2 months ago when she was ambulating , sustaining a scratch on her right leg. As per pt, she developed chills and nausea in the past few days prompting her to come to the ED. On admission, it was noted that patient had leukopenia (2.8, 2) with flat trending troponins. EKG: SB, pvcs bigemmy Echo: LV normal, RV normal, mild TR, trace MR, EF 76% Cardiology Chest pain, resolved Ruled out ACS by cardiology Denies chest pain on exam, denies shortness of breath Trops flat trending Echo: LV normal, RV normal, mild TR, trace MR, EF 76% Repeat EKG today shows sinus kirsten with PVCs Pulmonary Shortness of breath, resolved Denies any shortness of breath on exam Lungs clear to auscultation Vascular study normal, no DVT Echo within normal limits Respiratory Pre and post within normal limits, no tachycardia D Dimer negative Ambulating up and down pod without dyspnea No symptoms of shortness of breath Skin: RLE abscess, chronic On Keflex 500mg TID to continue as an outpatient for 7 more days Physical therapy evaluated, steady gait, no pain on legs with ambulation Patient instructed to follow up with the clinic at [facility] within 3-5 days, may need repeat blood work Dermatology consult for possible biopsy if RLE abscess does not respond to antibiotics Patient instructed, in agreement to follow up Hematology Leukopenia, unclear etiology No fevers, no labs to compare Patient encouraged to follow up outpatient for further workup Hematology referral as an outpatient Dispostion: Follow up outpatient with [facility]. Follow up with Dr. Paz if right lower ext abscess does not resolve with PO antibiotics. full code. Minutes to complete discharge: 60 Discharge Summary Reason For Visit: DYSPNEA ON EXERTION ELEVATED TROPONIN Current Active Problems Dyspnea on exertion (Acute) Elevated troponin (Acute) Condition: Stable - Instructions Diet, Activity, Other Instructions: Capri Dent: Nuevas medicinas Keflex 500mg - estiven veces al el leona hasta 07/31/2017 Bacid diaria - Para ayudar posiblementa eficaz para prevenir la diarrea Por favor de connie al doctor Meeta, el es un doctor primario. Por favor de connie a la doctordavid Paz, eh es tramaine dermatologo. Mrs Dent: New medications: Keflex 500mg, antibiotic - three times per day until 07/31/2017 Bacid - stomach neutralizer Please follow up with for follow up after you leave the hospital He is a primary care doctor. Dr. Paz is a car tester that you may follow up with if your right lower leg does not improve, you may need a biopsy. You WBC count is low @ 2.9, please follow up with Dr. Villalpando for repeat blood work. Referrals: Blessing Paz MD [Staff Physician] - Richmond Matthew MD [Staff Physician] - Leny Wallace MD [Staff Physician] - Disposition: HOME - Home Medications Comprehensive Discharge Medication List: Ambulatory Orders NK [No Known Home Medication] 07/22/17 NK [No Known Home Medication] 07/22/17 This patient is new to me today: No Emergency Visit: Yes ED Registration Date: 07/22/17 Care time: The patient presented to the Emergency Department on the above date and was hospitalized for further evaluation of their emergent condition. Critical Care patient: No - Discharge Referral Referred to [facility] Yes Physician Referral: Richmond Villalpando MD ([facility])
[2017-07-24] MEDS ORDERED: LACTOBACILLUS ACIDOPHILUS 1 EACH TAB (FP) PO SCH (10:00)
--- NOTE | 2017-07-24 10:00 | EKG ---
Test Reason : Blood Pressure : / mmHG Vent. Rate : 055 BPM Atrial Rate : 055 BPM P-R Int : 154 ms QRS Dur : 076 ms QT Int : 428 ms P-R-T Axes : 035 046 049 degrees QTc Int : 409 ms SINUS BRADYCARDIA WITH PREMATURE ATRIAL COMPLEXES OTHERWISE NORMAL ECG WHEN COMPARED WITH ECG OF 23-JUL-2017 08:37, NO SIGNIFICANT CHANGE WAS FOUND Confirmed by MD ABISAI, OREN ([id number]) on 07/24/2017 9:59:51 AM Referred By: Confirmed By:OREN BARONE MD
[2017-07-24] MEDS ORDERED: LACTOBACILLUS ACIDOPHILUS 1 EACH TAB (FP) ONE (11:19)
[2017-07-24 11:40] VITALS: PULSE 61
--- NOTE | 2017-07-24 11:44 | PN ---
Physical Exam: SUBJECTIVE: Patient seen and examined at bedside. Today, states that she is still having pain in her RLE and is c/o a sour taste in her mouth. However, she denies ALFARO, fever, chills, SOB, or changes in urinary or bowel function. Pt mentions that on her past admission for a fall, she was hospitalized at [address] [place] [address]. Pt afebrile overnight. No acute events. OBJECTIVE: Vital Signs Period Temp Pulse Resp BP Sys/Redd Pulse Ox Last 24 Hr 97.6 F-98.6 F 52-72 18-18 107-128/55-77 98-98 GENERAL: The patient is resting comfortably in bed. awake, alert, and fully oriented, in no acute distress. HEAD: Normal with no signs of trauma. EYES: PERRL, extraocular movements intact, sclera anicteric, conjunctiva clear. LUNGS: Breath sounds equal, clear to auscultation bilaterally, no wheezes, no crackles, no accessory muscle use. HEART: Regular rate and rhythm, S1, S2 without murmur, rub or gallop. ABDOMEN: Soft, nontender, nondistended, normoactive bowel sounds, no guarding, no rebound EXTREMITIES: 2+ dorsalis pedis pulses, no edema. RLE: 3x3cm soft tissue infection, with erythema, scaling, and new fluctuant bulla. NEUROLOGICAL: Cranial nerves II through XII grossly intact. Laboratory Tests 07/24/17 07/24/17 07/24/17 08:39 08:39 09:00 WBC 2.9 L D Hgb 11.8 Hct 36.9 Plt Count 193 Sodium 138 Potassium 4.2 Chloride 106 Carbon Dioxide 25 BUN 11 Creatinine 0.5 L Alkaline Phosphatase 118 H HIV 1&2 Antibody Screen Negative Microbiology 07/23/17 03:20 Nasopharyngeal Swab Influenza Types A,B Antigen (ROBERT) - Final 07/23/17 03:20 Nasopharyngeal Swab - Final Active Medications Generic Name Dose Route Start Last Admin Trade Name Freq PRN Reason Stop Dose Admin Cephalexin HCl 500 mg 07/23/17 22:00 07/24/17 05:25 Keflex - PO 500 mg TID MADDIE Administration Lactobacillus Acidophilus 1 tab 07/24/17 10:00 07/24/17 11:20 Bacid - PO 1 tab DAILY MADDIE Administration ASSESSMENT/PLAN: #RLE soft tissue infection -Pt afebrile, with leukopenia (2.9) -Pt to continue keflex 500mg PO TID for 7 days on d/c -ESR 43, CRP WNL -to f/u as outpt with derm and primary to address potential skin bx, and leukopenia respectively Thank you Liliana Orozco MD PGY-1 ID Team Visit type - Emergency Visit Emergency Visit: No - New Patient This patient is new to me today: No - Critical Care Critical Care patient: No
[2017-07-24 13:20] VITALS: BP 111/74
--- NOTE | 2017-07-24 17:11 | PN ---
Teaching Attending Note Name of Resident: Liliana Orozco ATTENDING PHYSICIAN STATEMENT I saw and evaluated the patient. I reviewed the resident's note and discussed the case with the resident. I agree with the resident's findings and plan as documented. SUBJECTIVE: OBJECTIVE: ASSESSMENT AND PLAN: Continue Keflex Outpatient follow up If persistant cellulitis advise derm consult and skin punch bx
== END 2017-07-24 12:20 | disposition home or self-care (01) ==
LOC: JER 18:14 → JERBED 22:41 → UNDOADMOB 07-23 00:17 → JERBED 07-23 00:17 → J4W 07-23 14:30
PROVIDERS: ADMIT Internal Medicine; ATTEND Nurse Practitioner Family
PROC: 3E033GC Introduction of Other Therapeutic Substance into Peripheral Vein, Percutaneous Approach (ICD-10-PCS; principal; 2017-07-22)
PROC: 3E03329 Introduction of Other Anti-infective into Peripheral Vein, Percutaneous Approach (ICD-10-PCS; 2017-07-22)
DX: R77.8 Other specified abnormalities of plasma proteins (principal); R06.09 Other forms of dyspnea; L03.115 Cellulitis of right lower limb
CPT/HCPCS: 36415; 71045-TC; 73590-TC-RT-FY; 80053; 80061; 82550; 83036; 83721; 83880; 84443; 84484; 85025; 85379; 85651; 86140; 87389; 87804; 93005; 93010; 93306-TC; 93970-TC; 94761; 97116-GP; 97161-GP; 99285-25; G0378